=== PATIENT | female | born 1960 | race Two or more races ===

== ENCOUNTER → 2016-07-28 | Outpatient (CLI) | payer OTHER ==
[~2016-07-28] MED LIST: ALPRAZOLAM1 MG PO; AMBIEN10 MG PO; AMITRIPTYLINE H25 MG PO; ATENOLOL25 MG PO; AUGMENTIN PO; BISACODYL EC5 M2 PO; BISACODYL5 M2 PO; BUTALB-ACETAMI1 EACH PO; CELEBREX PO; CLONAZEPAM2 MG PO; DEPAKOTE ER PO; DEPAKOTE PO; DETROL LA PO; DIAZEPAM PO; DOC-Q-LACE100 MG; DOXYCYCLINE HY100 M3 PO; FIORICET 50-321 EACH PO; FIORINAL 50-321 EACH PO; FLEET BISACODYL5 MG PO; FLEXERIL10 MG PO; GLUCOPHAGE500 M1 PO; HYDROCODON-ACE1 EAC5 PO; HYDROCODONE-APA1 T51 PO; IBUPROFEN800 MG PO; KEPPRA250 MG PO; KLONOPIN1 MG PO; LAMICTAL PO; LAMICTAL100 MG PO; LEVAQUIN750 M1 PO; LIPITOR40 MG PO; LITHIUM CARBON300 M1 PO; LITHIUM PO; MEDROL DOSEPAK4 MG PO; METFORMIN HCL500 M1 PO; MIRALAX17 GM DOB; MOVANTIK25 MG PO; MUCINEX1200 MG PO; MULTI VITAMIN1 EACH PO; NORTRIPTYLINE H50 MG PO; OMEPRAZOLE40 M1 PO; OMNICEF300 M1 PO; OXYCODON HCL-1 UDTAB PO; OXYCODONE-APAP1 EAC5 PO; PAMELOR25 M1 PO; PERCOCET 10/31 UDTA1 PO; PERCOCET10 PO; PHENERGAN PO; PRAVASTATIN SOD40 MG PO; PRILOSEC20 MG DOB; PROTONIX PO; PROZAC PO; PROZAC40 MG PO; REMERON30 MG PO; SENNA LAXATIVE1 TAB PO; SENNA PO; SENNA8.6 M1 PO; SENNA8.6 M2 PO; TENORMIN25 MG PO; TOPAMAX PO; VENLAFAXINE HCL75 M1 PO; VIT B12 PO; VITAMIN D PO; XANAX2 MG PO; ZOFRAN ODT4 MG PO; ZOFRAN PO; ZOLPIDEM TARTRAT5 M1 PO; ZYPREXA PO
--- NOTE | ~2016-07-28 | CR63 ---
[facility] A Service of [facility] & [facility] RADIOLOGY TEXT RESULTS PATIENT: ERIKA STRAUSS LOCATION: [facility] : 58 UNIT #: [id number] AGE: [address]: Suki Angela MD SEX: F ORDER DR: [id number] [facility] [address] [place], [place] [address] [id number] MR#: [id number] Acc #: [id number] NAME: ERIKA STRAUSS. : 1960 SEX: F STUDY DATE/TIME: 07/28/2016 17:17 UNIT: [facility] ROOM: STUDY DESCRIPTION: CR Chest 2 View Attending Physician: Suki Angela M.D. Referring Physician: Suki Angela M.D. Ordering Physician: Suki Angela M.D. Primary Care Physician: Suki Angela M.D. MEDICAL IMAGING REPORT This report is preliminary unless electronic signature is present EXAM Two-view chest INDICATION Cough for the past 2 weeks. PROCEDURE Frontal and lateral views of the chest. COMPARISON 07/06/2015 FINDINGS Heart size within normal limits. Ill-defined opacity in the left apex. No pleural fluid or visible pneumothorax. IMPRESSION Opacity in the left apex is new. This would be consistent with pneumonia. Recommend attention on followup to document improvement after therapy. Dictated by... Max Flores M.D. THIS IS AN ELECTRONICALLY VERIFIED REPORT Max Flores M.D. at 07/30/2016 10:12 PM ROSA/sean TD: 07/28/2016 18:35 JOB #: [id number] MEDICAL IMAGING REPORT Page 1 of 1 COPY
== END | disposition home or self-care (01) ==
LOC: CRAD 16:38
DX: R05 Cough (principal); R91.8 Other nonspecific abnormal finding of lung field; R53.83 Other fatigue; R52 Pain, unspecified
CPT/HCPCS: 71020

== ENCOUNTER 2016-08-01 07:28 | Emergency (ER) | payer OTHER, SELFPAY ==
--- NOTE | ~2016-08-01 | CR2 ---
[facility] A Service of [facility] & [facility] RADIOLOGY TEXT RESULTS PATIENT: ERIKA STRAUSS LOCATION: [facility] : 58 UNIT #: [id number] AGE: [address]: Yannick Aguilar MD SEX: F ORDER DR: [id number] [facility] [address] [place], [place] [address] [id number] E MR#: [id number] Acc #: [id number] NAME: ERIKA STRAUSS : 1960 SEX: F STUDY DATE/TIME: 08/01/2016 8:14 UNIT: [facility] ROOM: STUDY DESCRIPTION: CR Abdomen Acute Series Attending Physician: Yannick Aguilar M.D. Ordering Physician: Yannick Aguilar M.D. Primary Care Physician: Suki Angela M.D. MEDICAL IMAGING REPORT This report is preliminary unless electronic signature is present EXAM Acute abdomen series 3 views 08/01/2016 HISTORY Vomiting, nausea and dehydration for 2 days, unable to keep food down, diabetes. FINDINGS 3 views of the chest and abdomen demonstrate normal bowel gas pattern with no evidence of bowel obstruction or free air. There is a moderate amount of fecal matter in the colon. There are postsurgical changes of prior gastric banding. The heart is normal in size. There is an opacity in the medial left apex. Differential diagnosis includes pneumonia versus pulmonary neoplasm. Correlation with chest CT with contrast is recommended to exclude neoplasm. Lungs are otherwise clear except for some atelectasis or fibrosis in the right upper lobe. There are no pleural effusions. IMPRESSON 1. Ill-defined opacity medial left lung apex. Differential diagnosis includes pulmonary neoplasm versus pneumonia. Clinical correlation is recommended. Recommend correlation with chest CT with contrast to exclude pulmonary neoplasm. 2. Postsurgical changes of prior gastric banding. Normal bowel gas pattern. No evidence of bowel obstruction or free air. STAT * RESULT Dictated by... Mal Hilario M.D. [facility] A Service of [facility] & [facility] RADIOLOGY TEXT RESULTS PATIENT: ERIKA STRAUSS LOCATION: [facility] : 58 UNIT #: [id number] AGE: [address]: Yannick Aguilar MD SEX: F ORDER DR: THIS IS AN ELECTRONICALLY VERIFIED REPORT Mal Hilario M.D. at 08/02/2016 8:03 AM KRT/to TD: 08/01/2016 08:31 JOB #: [id number] MEDICAL IMAGING REPORT Page 1 of 1 COPY
[~2016-08-01 07:28] MED LIST changes: -AUGMENTIN PO; -BUTALB-ACETAMI1 EACH PO; -DOXYCYCLINE HY100 M3 PO; -FIORINAL 50-321 EACH PO; -KLONOPIN1 MG PO; -LEVAQUIN750 M1 PO; -LITHIUM PO; -MOVANTIK25 MG PO; -MUCINEX1200 MG PO; -NORTRIPTYLINE H50 MG PO; -OMNICEF300 M1 PO; -PERCOCET10 PO; -TENORMIN25 MG PO; -ZOFRAN PO; -ZOLPIDEM TARTRAT5 M1 PO
[2016-08-01 08:46] LABS: BASOPHIL# 0.1 X10e3 (0-0.3); BASOPHIL% 0.6 % (0-2.5); EOSINOPHIL# 0.1 X10e3 (0-0.7); EOSINOPHIL% 0.8 % (0.0-7.0); HEMOGLOBIN 11.1 gm/dL (12.0-16.0); LYMPHOCYTE# 1.8 X10e3 (1.0-3.5); LYMPHOCYTE% 15.1 % (17.0-45.0); MEAN CELL VOLUME 92.3 FL (83-96); MEAN CORPUSCULAR HEMOGLOBIN 29.3 PG (28-34); MEAN CORPUSCULAR HGB CONC 31.8 g/dL (30-36); MEAN PLATELET VOLUME 7.5 FL (6.5-11.5); MONOCYTE# 0.9 X10e3 (0-1.0); MONOCYTE% 7.1 % (3.0-12.0); NEUTROPHIL# 9.3 X10e3 (1.5-7.1); NEUTROPHIL% 76.4 % (40-75); PLATELET COUNT 569 X10e3 (140-420); RED BLOOD COUNT 3.79 X10e (3.90-5.30); RED CELL DISTRIBUTION WIDTH 13.3 % (11.0-15.5); WHITE BLOOD COUNT 12.1 X10e3 (4.0-10.5)
[2016-08-01 08:51] LABS: DIFF IND NO
[2016-08-01 09:19] LABS: ALBUMIN SERUM 2.9 g/dL (3.5-5.0); ALKALINE PHOSPHATASE 108 U/L (32-92); ALT (SGPT) 35 U/L (10-40); AMYLASE 10 U/L (0-46); AST (SGOT) 28 U/L (10-42); BLOOD UREA NITROGEN 8 mg/dL (9-23); CALCIUM SERUM 9.2 mg/dL (8.4-10.2); CARBON DIOXIDE 26 mmol/L (22-31); CHLORIDE 103 mmol/L (100-111); CREATININE SERUM 0.5 mg/dL (0.6-1.4); GLOM FILT RATE Estimated 108.2 mL/min (>60); GLUCOSE FASTING 170 mg/dL (70-110); LIPASE 13 U/L (22-51); POTASSIUM 3.4 mmol/L (3.5-5.1); PROTEIN TOTAL SERUM 8.2 g/dL (6.0-8.3); SODIUM 139 mmol/L (135-145)
[2016-08-01 09:23] LABS: BILIRUBIN, DIRECT <0.1 mg/dL (0.0-0.2); BILIRUBIN,TOTAL <0.1 mg/dL (0.2-2.0)
== END 2016-08-01 10:25 | disposition home or self-care (01) ==
LOC: CED 07:28
PROVIDERS: Emergency Medicine
DX: R11.2 Nausea with vomiting, unspecified (principal); E11.9 Type 2 diabetes mellitus without complications; Z79.899 Other long term (current) drug therapy
CPT/HCPCS: 36415; 74022; 80048; 80076; 82150; 82947; 83690; 85025; 96361; 96374; 96376; 99284; J2405

== ENCOUNTER 2016-08-03 07:45 | Inpatient (IN) | payer OTHER ==
--- NOTE | ~2016-08-03 | CR72 ---
[facility] A Service of [facility] RADIOLOGY TEXT RESULTS PATIENT: ERIKA STRAUSS LOCATION: [facility] 560-01 : 58 UNIT #: [id number] AGE: [address]: Dania Jefferson MD SEX: F ORDER DR: [id number] [facility] [address] [place], [place] [address] [id number] I MR#: [id number] Acc #: [id number] NAME: ERIKA STRAUSS : 1960 SEX: F STUDY DATE/TIME: 08/05/2016 6:38 UNIT: [facility] ROOM: [facility] STUDY DESCRIPTION: CR Chest Single View Portable Attending Physician: Dania Jefferson M.D. Ordering Physician: Solange Noyola M.D. Primary Care Physician: Suki Angela M.D. MEDICAL IMAGING REPORT This report is preliminary unless electronic signature is present EXAM Portable chest HISTORY Pneumonia with shortness of breath. Onset of symptoms 6 days ago. COMPARISON 08/03/2016. TECHNIQUE A single view of the chest was obtained. FINDINGS Density at the left apex is again seen and unchanged from the previous examination. The remaining lung kumari are clear. The vascular pattern is normal. No new focal infiltrates are seen. IMPRESSION Left apical mass again noted and unchanged. No new infiltrates are seen on either side. STAT * RESULT Dictated by... Iain Jiménez M.D. THIS IS AN ELECTRONICALLY VERIFIED REPORT Iain Jiménez M.D. at 08/05/2016 3:43 PM RLF/wagner TD: 08/05/2016 07:04 [facility] A Service of [facility] RADIOLOGY TEXT RESULTS PATIENT: ERIKA STRAUSS LOCATION: [facility] 560- : 58 UNIT #: [id number] AGE: [address]: Dania Jefferson MD SEX: F ORDER DR: JOB #: [id number] MEDICAL IMAGING REPORT Page 1 of 1 COPY
--- NOTE | ~2016-08-03 | HP ---
Unit #: [id number] #: [id number] Patient: ERIKA STRAUSS [id number] [facility] [place], [place] [address] [id number] I MR#: [id number] NAME: ERIKA STRAUSS ROOM: 560 Age: 55 Sex: F Admission Date: 08/03/2016 : 1960 Attending Physician: Ashley Campos M.D. Primary Care Physician: Suki Angela M.D. HISTORY AND PHYSICAL CHIEF COMPLAINT Vomiting, headache. HISTORY OF PRESENT ILLNESS The patient is a 55-year-old female with past medical history of migraine headaches, hyperlipidemia, diabetes, GERD, sinus tachycardia, obstructive sleep apnea, chronic back pain, bipolar disorder, who presented to the emergency department for evaluation of the above. The patient was diagnosed with pneumonia on July 28. She was then seen in the emergency department on August 01 for dehydration, nausea, vomiting. She returns today for persisting symptoms. She has been on Levaquin and Augmentin. She states that she has been taking the medications as prescribed. She has had shortness of breath and productive cough for about two weeks now. She denies any fever. No chest pain. She does have a headache today similar to migraine headaches in the past. She also reports nausea, vomiting. She states she has been unable to "keep anything down." She denies any diarrhea. She states that she has had intermittent crampy abdominal pain. In the emergency department a CT of the head was done and showed nothing acute. Chest x-ray showed possible mass involving the left apex. CT of the chest confirmed a left upper lobe mass concerning for malignancy with associated prominent mediastinal lymph nodes. An additional right upper lobe nodule was noted as well. She is being admitted to [facility] for evaluation and further treatment. PAST MEDICAL HISTORY 1. Admission to [facility] July 06, 2015 for chest pain. 2. Chronic back pain, maintained on narcotics. 3. Hyperlipidemia. 4. Diabetes. 5. GERD. 6. Sinus tachycardia. 7. Obstructive sleep apnea. The patient is currently noncompliant with CPAP. She states that she needs to have her mask "refitted." She has seen Dr. June in the past per [email or web address] but per my discussion with the patient she actually sees Dr. Aguiar's office. 8. Bipolar disorder. 9. Echocardiogram December 17, 2009 showed an ejection fraction of 50% to 55%. Unit #: [id number] #: [id number] Patient: ERIKA STRAUSS PAST SURGICAL HISTORY 1. Lap band placement. 2. Abdominal hysterectomy. 3. Bilateral salpingo-oophorectomy. 4. Sinus surgery. 5. ECT. 6. Laminectomy. 7. Diskectomy. SOCIAL HISTORY The patient lives with her son. There is no tobacco or alcohol use. FAMILY HISTORY Family history is notable for her mother having diabetes and dementia. Her dad had a cerebrovascular accident. ALLERGIES No known allergies. HOME MEDICATIONS Home medications include Zofran, Levaquin, Percocet, Movantik, Mucinex, Augmentin, Zolpidem, nortriptyline, Klonopin, Lipitor, Tenormin, lithium. Home medications will need to be reviewed and verified. REVIEW OF SYSTEMS A complete review of systems is negative except as indicated in the HPI. DIAGNOSTIC STUDIES CARDIOVASCULAR: EKG shows sinus tachycardia with a rate of 103 beats per minute. IMAGING: Chest x-ray shows possible mass at the apex of the left lung. CT of the head is negative. CT of the chest shows left upper lobe mass concerning for malignancy. There is prominent mediastinal lymphadenopathy as well as a nodule in the right upper lobe. There is also possible narrowing of the lap band. LABORATORY: Complete blood count notable for white blood cell count of 11, hemoglobin and hematocrit 11.1 and 34.6 respectively, platelets are 618. Arterial blood gas shows a pH of 7.569, pCO2 of 29.7, pO2 of 75.2 on room air. Comprehensive metabolic panel notable for glucose of 161, alkaline phosphatase 102, albumin is 3, beta hydroxybutyrate is 0.31. INR is 1.1. Lactic acid 1.3, troponin is less than 0.05. BNP is 17. Urinalysis is negative. PHYSICAL EXAMINATION VITAL SIGNS: Temperature is 97.7. Pulse 104. Respirations 16. Blood pressure 129/75. Oxygen saturation is 99% on room air. GENERAL: The patient is a female who is awake and alert, in no acute distress. HEENT: The head is atraumatic. Mucous membranes are moist. NECK: Neck is supple. Trachea is midline. CARDIOVASCULAR: Regular rate and rhythm. LUNGS: Lungs are clear to auscultation bilaterally with no increased work of breathing. ABDOMEN: Abdomen is soft, nontender, with bowel sounds present in all Unit #: [id number] #: [id number] Patient: ERIKA STRAUSS four quadrants. EXTREMITIES: Nontender, with no pedal edema. NEUROLOGIC: The patient is awake and alert. She follows commands. PSYCHIATRIC: Mood and affect are normal. The patient is cooperative. SKIN: Skin of examined areas is warm and dry. ASSESSMENT The patient is a 55-year-old female with: 1. Left upper lobe mass concerning for malignancy. 2. Intractable nausea and vomiting. The patient does have a history of lap band and there is questionable narrowing of the lap band on a CT. 3. Right upper lobe nodule. 4. Migraine headaches. 5. Normocytic anemia. 6. Hyperlipidemia. 7. Diabetes. 8. Gastroesophageal reflux disease. 9. History of sinus tachycardia. 10. Obstructive sleep apnea, not currently compliant with CPAP. 11. Chronic back pain, maintained on narcotics. 12. Bipolar disorder. PLAN 1. Admit for observation to intermediate level. 2. N.p.o. except medications. 3. Normal saline at 100 mL an hour. 4. Consult Dr. Aguiar regarding left upper lobe mass. 5. Supplemental oxygen. 6. P.r.n. DuoNeb. 7. P.r.n. Zofran. 8. Consult Dr. Truong regarding possible narrowing of lap band. 9. Serial cardiac enzymes. 10. Hemoglobin A1C. 11. Low dose sliding scale insulin with Accu-Cheks. 12. Check lithium level. 13. SCDs for DVT prophylaxis. 14. Repeat labs in the morning. 15. Additional workup and consultants based on above. Dictated by Ashley Campos M.D. ORQUIDEA/kevan TD: 08/03/2016 15:29 JOB #: [id number] HISTORY AND PHYSICAL Page 1 of 1 X Ashley Campos MD HISTORY AND PHYSICAL
--- NOTE | ~2016-08-03 | CT55 ---
[facility] A Service of [facility] & [facility] RADIOLOGY TEXT RESULTS PATIENT: ERIKA STRAUSS LOCATION: [facility] 560-01 : 58 UNIT #: [id number] AGE: [address]: Ashley Campos MD SEX: F ORDER DR: [id number] [facility] [address] [place], [place] [address] [id number] E MR#: [id number] Acc #: [id number] NAME: ERIKA STRAUSS : 1960 SEX: F STUDY DATE/TIME: 08/03/2016 10:24 UNIT: [facility] ROOM: STUDY DESCRIPTION: CT Chest W Con Attending Physician: Alba Meyers M.D. Ordering Physician: Alba Meyers M.D. Primary Care Physician: Suki Angela M.D. MEDICAL IMAGING REPORT This report is preliminary unless electronic signature is present EXAM CT of the chest with contrast patient INDICATION Cough for 3-4 weeks. Patient had a recent pneumonia diagnosis with concern for a mass. TECHNIQUE Axial CT images were obtained from the thoracic inlet through the dome of the diaphragm following the administration of intravenous contrast material. This CT exam was performed with one or more of the following radiation dose reduction techniques: automatic exposure control, adjustment of mA and/or kV according to patient size, and iterative reconstruction. FINDINGS Within the left upper lobe adjacent to the superior mediastinum this patient has a large mass measuring up to 9.4 x 3.9 cm. It has areas of low attenuation within it likely reflecting some central necrosis. I think its appearance is probably most in keeping with malignancy although an infectious or inflammatory process would certainly be in the differential. There are some enlarged mediastinal and hilar lymph nodes noted. For example, a lymph node which is seen posterior to the left pulmonary artery measures 1.3 x 1.6 cm. There is a ground-glass infiltrate measuring about 1.0 cm in size which is located within the right upper lobe although this could reflect an area of scarring. Some tree-in-bud infiltrates are noted within the lingula. The thyroid gland and trachea appear within normal limits. Patient's esophagus is dilated and patulous. A laparoscopic gastric band is noted and appears unchanged in position. I don't really see any convincing evidence of slippage but I do see concentric dilatation of the distal STS. [facility] A Service of [facility] & [facility] RADIOLOGY TEXT RESULTS PATIENT: ERIKA STRAUSS LOCATION: [facility] 560-01 : 58 UNIT #: [id number] AGE: [address]: Ashley Campos MD SEX: F ORDER DR: esophagus/pouch. Again, similar findings were present in December 2012 but I do think pouch dilatation has increased when compared to that study and this could reflect some degree of narrowing through the band itself. There is a trace left pleural effusion. I do not see any acute abnormalities within the upper abdomen. Review of bony windows does not demonstrate any aggressive osseous abnormalities. IMPRESSION 1. This patient has a left upper lobe mass measuring up to 9.4 x 3.9 cm. While it could reflect an infectious infiltrate, I think its appearance is very worrisome for malignancy, most likely primary bronchogenic. In addition, there are some prominent mediastinal lymph nodes which I suspect could reflect some additional malignant involvement. I do not see any convincing evidence of metastatic disease to the upper abdomen or skeletal system. 2. There is a 1.0 cm ground-glass nodule seen within the right upper lobe which could reflect some scarring, however attention to it on short-term followup exam is suggested. 3. This patient has concentric dilatation of the patient's distal esophagus/gastric pouch following laparoscopic gastric band procedure. Similar findings were present in December 2012 but the degree of dilatation has increased when compared to that examination. This certainly could reflect some narrowing through the band itself resulting in pre-stenotic dilatation of the pouch. 4. Trace left pleural effusion. 5. Please see the body of the report for any other additional incidental findings. Dictated by... Mima Garcia M.D. THIS IS AN ELECTRONICALLY VERIFIED REPORT Mima Garcia M.D. at 08/03/2016 4:59 PM AFF/jw TD: 08/03/2016 15:00 JOB #: [id number] MEDICAL IMAGING REPORT Page 1 of 1 COPY
--- NOTE | ~2016-08-03 | CT71 ---
[facility] A Service of [facility] RADIOLOGY TEXT RESULTS PATIENT: ERIKA STRAUSS LOCATION: [facility] 560-01 : 58 UNIT #: [id number] AGE: [address]: Ashley Campos MD SEX: F ORDER DR: [id number] [facility] [address] [place], [place] [address] [id number] E MR#: [id number] Acc #: [id number] NAME: ERIKA STRAUSS : 1960 SEX: F STUDY DATE/TIME: 08/03/2016 10:09 UNIT: [facility] ROOM: STUDY DESCRIPTION: CT Head Wo Contrast Attending Physician: Alba Meyers M.D. Ordering Physician: Alba Meyers M.D. Primary Care Physician: Suki Angela M.D. MEDICAL IMAGING REPORT This report is preliminary unless electronic signature is present EXAM Head CT 08/03 INDICATIONS Diffuse throbbing headache for the last 3 days. FINDINGS Axial images were obtained from the base to the vertex without contrast. Comparison made with 03/15/2011. The CT exam was performed with one or more of the following radiation dose reduction techniques: automatic exposure control, adjustment of mA and/or kV according to patient size, and iterative reconstruction. FINDINGS Ventricular size configuration are within normal limits. No acute infarct or hemorrhage is seen. There are no masses. No skull fractures. IMPRESSION Negative noncontrast head CT. Dictated by... Iain Leos Jr., M.D. THIS IS AN ELECTRONICALLY VERIFIED REPORT Iain Leos Jr., M.D. at 08/03/2016 3:39 PM RLK/jami TD: 08/03/2016 14:44 JOB #: [id number] [facility] A Service of [facility] RADIOLOGY TEXT RESULTS PATIENT: ERIKA STRAUSS LOCATION: [facility] 560-01 : 58 UNIT #: [id number] AGE: [address]: Ashley Campos MD SEX: F ORDER DR: MEDICAL IMAGING REPORT Page 1 of 1 COPY
--- NOTE | ~2016-08-03 | OR ---
Unit #: [id number] #: [id number] Patient: ERIKA STRAUSS [id number] [place], [place] [address] [id number] I MR#: [id number] NAME: ERIKA STRAUSS ROOM: [facility] Date of Procedure: 08/04/2016 Admission Date: 08/03/2016 Surgeon: Justin Truong M.D. : 1960 Attending Physician: Dania Jefferson M.D. Primary Care Physician: Suki Angela M.D. OPERATIVE REPORT PREOPERATIVE DIAGNOSIS Gastric band obstruction. POSTOPERATIVE DIAGNOSIS Gastric band obstruction. PROCEDURE PERFORMED Removal of laparoscopic adjustable gastric band fluid with band adjustment. ANESTHESIA None. INDICATIONS FOR PROCEDURE The patient is a 55-year-old lady, who presents with gastric outlet obstruction secondary to band overtightening versus edema. She presents for fluid removal. DESCRIPTION OF PROCEDURE The patient placed in a supine position. Her anterior abdominal region was prepped. I then accessed with a Sanchez needle. I was able to draw 2 mL of fluid, which was the entire fluid amount within the band. She drink liquids and noticed a difference immediately. Band-Aid was placed. She tolerated the procedure well without complication. Dictated by... Nora Green/vinita TD: 08/04/2016 17:16 JOB #: [id number] Unit #: [id number] #: [id number] Patient: ERIKA STRAUSS OPERATIVE REPORT Page 1 of 1 X Justin Truong MD X PROCEDURE OPERATIVE NOTE
--- NOTE | ~2016-08-03 | DS ---
Unit #: [id number] #: [id number] Patient: ERIKA STRAUSS [id number] [address] [id number] I MR#: [id number] NAME: ERIKA STRAUSS ROOM: 560 Age: 55 Sex: F Admission Date: 08/03/2016 : 1960 Discharge Date: 08/05/2016 Attending Physician: Dania Jefferson M.D. Primary Care Physician: Suki Angela M.D. DISCHARGE SUMMARY DISCHARGE DIAGNOSES 1. Left upper lobe pneumonia. 2. Left upper lobe mass, concerning for malignancy. The patient needs outpatient bronchoscopy. The patient is currently receiving interventional radiology to do biopsy. She does not want pneumothorax, so she wants to go through bronchoscopy. This can be done as an outpatient. 3. Right upper lobe nodule. Follow up with Dr. Noyola. 4. Migraine headache. 5. Normocytic anemia. 6. Hyperlipidemia. 7. Diabetes mellitus type 2. 8. Gastroesophageal reflux disease. 9. Sinus tachycardia. 10. Obstructive sleep apnea, noncompliant with CPAP. 11. Chronic back pain on narcotics. 12. History of bipolar disease. 13. Hypokalemia. 14. Mild hypocalcemia. CONSULTANTS Dr. Noyola. Dr. Truong. PROCEDURES PERFORMED The patient had removal of laparoscopic adjustable gastric band fluid with band adjustment. DIAGNOSTIC DATA LABORATORY: Sputum cultures show gram positive cocci and gram negative rods. Sodium 142, potassium 3.2, creatinine 0.5, calcium 8.1, white blood cell count 1.7, hemoglobin 9.8, platelets 484. Blood cultures negative. Hemoglobin A1c 6.8, troponin negative. [place] level less than 0.1. BNP 17, lactic acid 1.3. ABG, pH 7.56, carbon dioxide 29, oxygen 75. IMAGING: Chest x-ray shows left apical mass. CT of the head shows negative. ALLERGIES No known drug allergies. DISCHARGE MEDICATIONS 1. Fioricet 1 tablet p.o. b.i.d. Unit #: [id number] #: [id number] Patient: ERIKA STRAUSS 2. Nortriptyline 100 mg at bedtime. 3. Zofran 4 mg q.8 h. p.r.n. nausea. 4. [place] 300 mg p.o. b.i.d. 5. Ambien 5 mg daily. 6. Klonopin 1 mg p.o. q.i.d. 7. Atenolol 25 mg p.o. daily. 8. Mucinex 600 mg p.o. b.i.d. 9. Movantik 1 tablet p.o. daily p.r.n. constipation. 10. Lipitor 40 mg daily. 11. Percocet 10 mg q.i.d. p.r.n. pain. 12. Doxycycline 100 mg p.o. b.i.d. for 10 days. 13. Omnicef 300 mg p.o. b.i.d. for 10 days. HOSPITAL COURSE The patient is a 55-year-old admitted because of vomiting and headache. Left upper lobe mass with pneumonia: The patient was started on IV Rocephin and doxycycline. The patient did receive Levaquin and Augmentin at home for the same problem. The patient was seen by Dr. Noyola. According to him, the plan is to treat with 10 more days of antibiotics and see if the pneumonia clears up. If not, the patient needs bronchoscopy. The patient will see Dr. Noyola in one week time for outpatient bronchoscopy for the left upper lobe mass. Rule out malignancy. The patient understands the instructions. Right upper lobe nodule: Follow up with Dr. Noyola as an outpatient. Migraine with nausea and vomiting: The patient was started on Fioricet. I gave prescription. Chronic back pain on opiates. Continue Percocet. Hypokalemia: Replaced with p.o. potassium. Diabetes mellitus type 2: Uncontrolled. Hypertension: Uncontrolled. Continue with home medication. The patient has a drug-seeking behavior. Discussed with Dr. Yoon. According to him, the patient can be discharged home on antibiotics. The patient needs to follow up with Dr. Noyola in one week time for outpatient bronchoscopy. Please note that the patient did not want interventional radiology to do lung biopsy because she does not want a pneumothorax complication. DISPOSITION Discharge home. FOLLOWUP 1. Follow up with family physician in one week time. 2. Follow up with Dr. Noyola in one week time for outpatient bronchoscopy and followup for her pneumonia. Discharge time taken was 31 minutes. Unit #: [id number] #: [id number] Patient: ERIKA STRAUSS Dictated by... Dania Jefferson M.D. KJ/gz TD: 08/05/2016 12:45 JOB #: [id number] CC: Suki Angela M.D. DISCHARGE SUMMARY Page 1 of 1 X Dania Jefferson MD X DISCHARGE SUMMARY
--- NOTE | ~2016-08-03 | CO ---
Unit #: [id number] #: [id number] Patient: ERIKA STRAUSS [id number] [address] [place], [place] [address] [id number] MR#: [id number] NAME: ERIKA STRAUSS ROOM: 560 Age: 55 Sex: F Admission Date: 08/03/2016 : 1960 Attending Physician: Dania Jefferson M.D. Primary Care Physician: Suki Angela M.D. Consultation Date: 08/04/2016 CONSULTATION REPORT BRIEF HISTORY The patient is a 55-year-old who has had Lap-Band for quite some time and noncompliant, who presents with nausea, vomiting, pulmonary symptoms, reflux at night over at least the last 2 weeks or more. She presents for evaluation. I am asked to evaluate her Lap-Band, which appears from symptomatology to be too tight contributing to her symptoms. PAST MEDICAL HISTORY Chronic back pain, hyperlipidemia, diabetes, sleep apnea. PAST SURGICAL HISTORY She has had a hysterectomy, laminectomy, diskectomy. SOCIAL HISTORY No smoking. No alcohol. FAMILY HISTORY Negative for GI malignancy. REVIEW OF SYSTEMS No cardiopulmonary complaints at this time. Else, 10 systems reviewed and negative. PHYSICAL EXAMINATION GENERAL: She is awake, alert, appropriate. VITAL SIGNS: Currently afebrile. HEENT: Unremarkable. NECK: Supple. No JVD. Trachea midline. LUNGS: Clear to auscultation. Bilateral breath sounds symmetric. CARDIOVASCULAR: Regular rate and rhythm. ABDOMEN: Soft, nontender, and nondistended. I palpated no masses. No hepatosplenomegaly. EXTREMITIES: No clubbing, cyanosis, or edema. ASSESSMENT Lap-Band with gastric outlet obstruction. PLAN Recommend band fluid removal. Dictated by... Justin Truong M.D. Unit #: [id number] #: [id number] Patient: ERIKA STRAUSS JNO/modl TD: 08/04/2016 23:16 JOB #: [id number] CONSULTATION REPORT Page 1 of 1 X Justin Truong MD X CONSULTATION REPORT
--- NOTE | ~2016-08-03 | EKG ---
PATIENT: ERIKA STRAUSS UNIT #: [id number] Ventricular Rate: 103 BPM Atrial Rate: 103 BPM P-R Interval: 144 ms QRS Duration: 80 ms Q-T Interval: 364 ms QTC Calculation(Bezet): 476 ms P Paia: 46 degrees Calculated R Paia: -7 degrees Calculated T Paia: 25 degrees Diagnosis Line: Sinus tachycardia Diagnosis Line: Nonspecific T wave abnormality Diagnosis Line: Abnormal ECG Diagnosis Line: When compared with ECG of 06-JUL-2015 13:10, Diagnosis Line: No significant change was found Diagnosis Line: Confirmed by ROBERTO LAURA MD ([id number]) on Diagnosis Line: 08/04/2016 10:52:14 AM INTERPRETING : AMY
--- NOTE | ~2016-08-03 | CR72 ---
[facility] A Service of [facility] & [facility] RADIOLOGY TEXT RESULTS PATIENT: ERIKA STRAUSS LOCATION: [facility] 560-01 : 59 UNIT #: [id number] AGE: [address]: Ashley Campos MD SEX: F ORDER DR: [id number] [facility] [address] [place], [place] [address] [id number] MR#: [id number] Acc #: [id number] NAME: ERIKA STRAUSS : 1960 SEX: F STUDY DATE/TIME: 08/03/2016 8:35 UNIT: JOJO ROOM: STUDY DESCRIPTION: CR Chest Single View Portable Attending Physician: Alba Meyers M.D. Ordering Physician: Alba Meyers M.D. Primary Care Physician: Suki Angela M.D. MEDICAL IMAGING REPORT This report is preliminary unless electronic signature is present EXAM Portable chest 08/03 INDICATIONS Shortness of air for two weeks. Recent pneumonia. FINDINGS AP portable chest is compared with 08/01/2016. Heart size stable. Hiatal hernia is stable. Right lung is clear. There is abnormal density in the medial left apex which could reflect a mass. Contrast enhanced chest CT is again recommended. IMPRESSION Persistent potential mass in the medial left apex. The chest CT with contrast is again recommended. Dictated by... Iain Leos Jr., M.D. THIS IS AN ELECTRONICALLY VERIFIED REPORT Iain Leos Jr., M.D. at 08/03/2016 3:38 PM EDGAR/jami TD: 08/03/2016 13:45 JOB #: [id number] MEDICAL IMAGING REPORT Page 1 of 1 COPY
[2016-08-03 08:30] LABS: BASOPHIL# 0.1 X10e3 (0-0.3); BASOPHIL% 0.6 % (0-2.5); EOSINOPHIL# 0.1 X10e3 (0-0.7); EOSINOPHIL% 0.9 % (0.0-7.0); HEMATOCRIT 34.6 % (35.0-45.0); HEMOGLOBIN 11.1 gm/dL (12.0-16.0); LYMPHOCYTE# 1.9 X10e3 (1.0-3.5); LYMPHOCYTE% 17.1 % (17.0-45.0); MEAN CELL VOLUME 91.8 FL (83-96); MEAN CORPUSCULAR HEMOGLOBIN 29.5 PG (28-34); MEAN CORPUSCULAR HGB CONC 32.1 g/dL (30-36); MEAN PLATELET VOLUME 7.1 FL (6.5-11.5); MONOCYTE# 0.7 X10e3 (0-1.0); MONOCYTE% 6.7 % (3.0-12.0); NEUTROPHIL# 8.2 X10e3 (1.5-7.1); NEUTROPHIL% 74.7 % (40-75); PLATELET COUNT 618 X10e3 (140-420); RED BLOOD COUNT 3.77 X10e (3.90-5.30); RED CELL DISTRIBUTION WIDTH 13.6 % (11.0-15.5)
[2016-08-03 08:34] LABS: DIFF IND NO
[2016-08-03 08:46] LABS: ARTERIAL BLD GAS O2 SATURATION 95.9 % (90.0-100.0); ARTERIAL BLOOD GAS CARBOXY HB 0.8 %sat (0.0-9.0); ARTERIAL BLOOD GAS HCO3 27.2 mmol/L; ARTERIAL BLOOD GAS MET HB 0.7 %sat (0.0-2.0); ARTERIAL BLOOD GAS PCO2 29.7 mmHg (35.0-45.0); ARTERIAL BLOOD GAS pH 7.569 (7.350-7.450)
[2016-08-03 08:47] LABS: ARTERIAL BLOOD GAS ALLEN TEST NORMAL; ARTERIAL BLOOD GAS ART SITE LEFT RADIAL; ARTERIAL BLOOD GAS PO2 75.2 mmHg (80.0-100); ARTERIAL DRAW? YES
[2016-08-03 09:02] LABS: BETA HYDROXYBUTYRATE 0.31 MMOL/L (0.02-0.27); BILIRUBIN, DIRECT 0.1 mg/dL (0.0-0.2); BILIRUBIN,INDIRECT 0.1 mg/dL (0.0-0.9); BILIRUBIN,TOTAL 0.2 mg/dL (0.2-2.0); BUN/CREATININE RATIO 11.66; CREATININE SERUM 0.6 mg/dL (0.6-1.4); GLOM FILT RATE Estimated 101.9 mL/min (>60); MAGNESIUM 2.3 mg/dL (1.6-3.0); PHOSPHOROUS 2.7 mg/dL (2.5-4.6); POTASSIUM 3.5 mmol/L (3.5-5.1); PROTEIN TOTAL SERUM 7.7 g/dL (6.0-8.3)
[2016-08-03 09:06] LABS: INR 1.1; PARTIAL THROMBOPLASTIN TIME 25.5 SECONDS (23.5-31.3); PROTHROMBIN TIME (PATIENT) 11.7 SECONDS (10.0-11.7)
[2016-08-03 10:11] LABS: POC - CKMB <1.0 ng/mL (0.0-7.9); POC - TROPONIN <0.05 ng/mL (<=0.05)
[2016-08-03 11:12] LABS: URINE SOURCE CLEAN CATCH
[2016-08-03 11:19] LABS: URINE APPEARANCE CLEAR; URINE BILIRUBIN NEG (NEG); URINE BLOOD NEG (NEG); URINE COLOR YELLOW; URINE GLUCOSE NEG (NEG); URINE KETONE NEG (NEG); URINE LEUKOCYTE ESTERASE NEG (NEG); URINE NITRATE NEG (NEG); URINE PH 6.5 (5-8); URINE PROTEIN NEG (NEG); URINE SPECIFIC GRAVITY 1.038 (1.003-1.035); URINE UROBILINOGEN 0.2 MG/DL (NEG)
[2016-08-03 11:23] LABS: CULTURE INDICATED? NO
[2016-08-03] MEDS ORDERED: ZOFRAN PO (12:25)
[2016-08-03] MEDS ORDERED: PERCOCET10 PO (12:26)
[2016-08-03] MEDS ORDERED: LEVAQUIN750 M1 PO (12:26)
[2016-08-03] MEDS ORDERED: MOVANTIK25 MG PO (12:26)
[2016-08-03] MEDS ORDERED: AUGMENTIN PO (12:27)
[2016-08-03] MEDS ORDERED: MUCINEX1200 MG PO (12:27)
[2016-08-03] MEDS ORDERED: ZOLPIDEM TARTRAT5 M1 PO (12:28)
[2016-08-03] MEDS ORDERED: KLONOPIN1 MG PO (12:29)
[2016-08-03] MEDS ORDERED: NORTRIPTYLINE H50 MG PO (12:29)
[2016-08-03] MEDS ORDERED: TENORMIN25 MG PO (12:30)
[2016-08-03] MEDS ORDERED: LIPITOR40 MG PO (12:30)
[2016-08-03] MEDS ORDERED: LITHIUM PO (12:31)
[2016-08-03 16:27] LABS: CK TOTAL 33 IU/L (26-140)
[2016-08-03 22:39] LABS: CK TOTAL 40 IU/L (26-140)
[2016-08-04 06:46] LABS: HEMOGLOBIN 9.7 gm/dL (12.0-16.0); MEAN CELL VOLUME 91.6 FL (83-96); MEAN CORPUSCULAR HEMOGLOBIN 29.6 PG (28-34); MEAN CORPUSCULAR HGB CONC 32.3 g/dL (30-36); MEAN PLATELET VOLUME 6.9 FL (6.5-11.5); RED BLOOD COUNT 3.28 X10e (3.90-5.30); RED CELL DISTRIBUTION WIDTH 13.9 % (11.0-15.5); WHITE BLOOD COUNT 7.7 X10e3 (4.0-10.5)
[2016-08-04 07:46] LABS: CALCIUM SERUM 8.2 mg/dL (8.4-10.2); CREATININE SERUM 0.5 mg/dL (0.6-1.4); GLOM FILT RATE Estimated 108.2 mL/min (>60); POTASSIUM 3.5 mmol/L (3.5-5.1)
[2016-08-05 05:57] LABS: HEMATOCRIT 30.8 % (35.0-45.0); HEMOGLOBIN 9.8 gm/dL (12.0-16.0); MEAN CELL VOLUME 92.4 FL (83-96); MEAN CORPUSCULAR HEMOGLOBIN 29.4 PG (28-34); MEAN CORPUSCULAR HGB CONC 31.9 g/dL (30-36); MEAN PLATELET VOLUME 7.1 FL (6.5-11.5); RED BLOOD COUNT 3.33 X10e (3.90-5.30); WHITE BLOOD COUNT 7.7 X10e3 (4.0-10.5)
[2016-08-05 06:52] LABS: CALCIUM SERUM 8.1 mg/dL (8.4-10.2); CREATININE SERUM 0.5 mg/dL (0.6-1.4); GLOM FILT RATE Estimated 108.2 mL/min (>60); POTASSIUM 3.2 mmol/L (3.5-5.1)
[2016-08-05] MEDS ORDERED: DOXYCYCLINE HY100 M3 PO (13:40)
[2016-08-05] MEDS ORDERED: FIORINAL 50-321 EACH PO (13:40)
[2016-08-05] MEDS ORDERED: OMNICEF300 M1 PO (13:41)
[2016-08-05] MEDS ORDERED: BUTALB-ACETAMI1 EACH PO (14:05)
== END 2016-08-05 17:45 | disposition home or self-care (01) | DRG 987 ==
LOC: CED 07:45 → CEDOF 13:20 → C5B 13:20 → CED 13:26 → CEDOF 13:26 → C5B 15:07 → CEDOF 15:07 → C5B 15:07
PROVIDERS: Emergency Medicine; Family Medicine; Internal Medicine
PROC: 3E0G3GC Introduction of Other Therapeutic Substance into Upper GI, Percutaneous Approach (ICD-10-PCS; principal; 2016-08-04)
DX: K95.09 Other complications of gastric band procedure (principal); J18.9 Pneumonia, unspecified organism; K31.1 Adult hypertrophic pyloric stenosis; E83.51 Hypocalcemia; E78.5 Hyperlipidemia, unspecified; E11.9 Type 2 diabetes mellitus without complications; E87.6 Hypokalemia; D64.9 Anemia, unspecified; M54.9 Dorsalgia, unspecified; G89.29 Other chronic pain; K21.9 Gastro-esophageal reflux disease without esophagitis; G47.33 Obstructive sleep apnea (adult) (pediatric); Z91.19 Patient's noncompliance with other medical treatment and regimen; F31.9 Bipolar disorder, unspecified; Z90.710 Acquired absence of both cervix and uterus; R91.8 Other nonspecific abnormal finding of lung field; R11.2 Nausea with vomiting, unspecified; G43.909 Migraine, unspecified, not intractable, without status migrainosus; Y73.8 Miscellaneous gastroenterology and urology devices associated with adverse incidents, not elsewhere classified; Z76.5 Malingerer [conscious simulation]; R00.0 Tachycardia, unspecified
CPT/HCPCS: 36415; 36600; 70450; 71010; 71260; 80048; 80076; 80178; 81003; 82010; 82308; 82550; 82553; 82803; 82947; 83036; 83605; 83735; 83880; 84100; 84484; 85025; 85027; 85610; 85730; 86850; 86900; 86901; 87040; 87070; 87205; 93005; 94640; 94664; 94760; 96361; 96374; 96375; 99285; J0696; J1170; J1815; J1885; J2270; J2405; J2550; J2765; Q9967